=== PATIENT | female | born 1930 | race Hispanic/Latino ===

== ENCOUNTER 2017-07-22 12:23 | Emergency (ER) | payer MEDICARE ==
[~2017-07-22] VITALS: Ht 160 cm; Wt 55.8 kg
[~2017-07-22 12:23] MED LIST: ASPIRIN LOW-STR81 MG PO; ATENOLOL; ATENOLOL25 MG PO; LESCOL; LESCOL20 MG PO
[2017-07-22 13:26] LABS: LEUKOCYTE ESTERASE ,URINE 2+ (NEGATIVE)
[2017-07-22 13:28] LABS: BILIRUBIN,URINE NEGATIVE (NEGATIVE); CLARITY,URINE CLOUDY (CLEAR); COLOR,URINE YELLOW (YELLOW); KETONES,URINE NEGATIVE (NEGATIVE); NITRITE,URINE NEGATIVE (NEGATIVE); PROTEIN,URINE DIPSTICK NEGATIVE (NEGATIVE); URINE UROBILINOGEN 0.2 mg/dL (0.2 - 1)
[2017-07-22 13:39] LABS: BACTERIA,URINE MODERATE /HPF; EPITHELIAL CELLS,URINE MODERATE /LPF; RBC,URINE 0-5 /HPF (0-5); WBC,URINE (MAN) 21-50 /HPF (0-5)
--- NOTE | 2017-07-22 14:57 | Diagnostic Imaging Report ---
PROCEDURE:L-SPINE COMPLETE COMPARISON:None. INDICATIONS:RIGHT LOWER BACK PAIN FINDINGS: There are five lumbar-type vertebral bodies. Diffuse osseous demineralization. Convex curvature of the lumbar spine to the right. Cholecystectomy clips project over the right upper quadrant. Lumbar CT report from 02/06/2016 is available for compression, however no images are available to directly compare. Compression deformities of: * L1 with approximately 50% height loss (previously 30% reported on lumbar spine CT 02/06/2016) * L2 with approximately 40% height loss (previously 30% reported) * L3 compression deformity with approximately 30% height loss. No compression deformity was previously noted. * L4 compression deformity with approximately 50% height loss. No compression deformity was previously noted. The sacroiliac joints are unremarkable. CONCLUSION: Age-indeterminate worsening compression of L1 and L2. Age-indeterminate compression deformities of L3 and L4. Dictated by: Daryl Lopez M.D. on 07/22/2017 at 14:56 Electronically approved by: Daryl Lopez M.D. on 07/22/2017 at 14:56
--- NOTE | 2017-07-22 15:40 | Diagnostic Imaging Report ---
PROCEDURE:X-RAY ABDOMEN - KUB COMPARISON:None. INDICATIONS:BACK PAIN FOR A FEW DAYS FINDINGS: There is a non-obstructed bowel-gas pattern. Moderate amount of stool in the colon. A punctate calcification overlying the right renal silhouette is likely outside the kidney, possibly in the skin adjacent to the cassette given the relative lack of motion artifact. Otherwise, there are no calcifications projected over the renal shadows, expected course of the ureters or bladder. Cholecystectomy clips. Please refer to same day lumbar spine for lumbar spine findings including multiple compression deformities. Visualized lung bases are grossly clear. CONCLUSION: Non-obstructed bowel-gas pattern. Dictated by: Daryl Lopez M.D. on 07/22/2017 at 15:40 Electronically approved by: Daryl Lopez M.D. on 07/22/2017 at 15:40
== END 2017-07-22 16:20 | disposition home or self-care (01) ==
LOC: ER 12:23
DX: M54.5 Low back pain (principal); N30.90 Cystitis, unspecified without hematuria; E78.5 Hyperlipidemia, unspecified
CPT/HCPCS: 72110; 74018; 81001; 99284

== ENCOUNTER 2018-02-04 13:51 | Emergency (ER) | payer MEDICARE ==
[~2018-02-04] VITALS: Ht 160 cm; Wt 65.8 kg
[2018-02-04] MEDS ORDERED: TETANUS/DIPHTHERIA TOX ADULT 0.5 ML SYR IM ONE (14:00)
--- NOTE | 2018-02-04 15:01 | Diagnostic Imaging Report ---
FOOT LEFT COMPLETE - 3 views HISTORY: Foreign body. COMPARISON: None available. FINDINGS: Generalized demineralization and hammertoe deformities limits evaluation. No definite evidence of erosion, periosteal reaction, or abnormal soft tissue ossification. No acute displaced fracture or dislocation. Subluxation at the level of the second metatarsophalangeal joint. Small plantar calcaneal enthesophyte. IMPRESSION: No radiopaque foreign body visualized. Generalized demineralization. No definite evidence of acute displaced fracture. Subluxation at the level of the second metatarsophalangeal joint. Signed by: Dr. Delon Damon MD on 02/04/2018 2:58 PM
--- OUTSIDE RECORDS SUMMARY | 2018-02-07 13:42 | XMS REPORT ---
[facility] Address Unknown Phone Unavailable Care Team Providers Care Sales Professional Bilingual Name Role Phone Armaan ARCE Unavailable Unavailable KAILA WRIGHT Unavailable Unavailable Problems This patient has no known problems. Allergies, Adverse Reactions, Alerts This patient has no known allergies or adverse reactions. Medications This patient has no known medications. Results Test Description Test Time Test Comments Text Results Atomic Results Result Comments FOOT LEFT COMPLETE 2018-02-04 14:51:00 [facility] [address] [address] Patient Name: GHAZAL FIGUEROA MR #: [id number] : 1930 Age/Sex: 87/F Req #: [id number] Adm Physician: Ordered by: RADU LUNSFORD SORTER PACKER Report #: [id number] Location: ER Room/Bed: Procedure: [id number] DX/FOOT LEFT COMPLETE Exam Date: 02/04/18 Exam Time: 1440 REPORT STATUS: Signed FOOT LEFT COMPLETE - 3 views HISTORY: Foreign body. COMPARISON: None available. FINDINGS: Generalized demineralization and hammertoe deformities limits evaluation. No definite evidence of erosion, periosteal reaction, or abnormal soft tissue ossification. No acute displaced fracture or dislocation. Subluxation at the level of the second metatarsophalangeal joint. Small plantar calcaneal enthesophyte. IMPRESSION: No radiopaque foreign body visualized. Generalized demineralization. No definite evidence of acute displaced fracture. Subluxation at the level of the second metatarsophalangeal joint. Signed by: Dr. Delon Sanchez MD on 02/04/2018 2:58 PM Dictated By: DELON SANCHEZ MD 57 Transcribed By: ZARA on 02/04/181457 COPY TO: RADU LUNSFORD NP ABDOMEN-1VIEW (KUB) [address] [place] [address] Patient Name: GHAZAL FIGUEROA MR #: [id number] : 1930 Age/Sex: 86/F Req #: [id number] Adm Physician: Ordered by: KAILA WRIGHT MD Report #: [id number] Location: ER Room/Bed: Procedure: [id number] DX/ABDOMEN-1VIEW (KUB) Exam Date: 07/22/17 Exam Time: 1520 REPORT STATUS: Signed PROCEDURE: X-RAY ABDOMEN - KUB COMPARISON: None. INDICATIONS: BACK PAIN FOR A FEW DAYS FINDINGS: There is a non- obstructed bowel-gas pattern. Moderate amount of stool in the colon. A punctate calcification overlying the right renal silhouette is likely outside the kidney, possibly in the skin adjacent to the cassette given the relative lack of motion artifact. Otherwise, there are no calcifications projected over the renal shadows, expected course of the ureters or bladder. Cholecystectomy clips. Please refer to same day lumbar spine for lumbar spine findings including multiple compression deformities. Visualized lung bases are grossly clear. CONCLUSION: Non-obstructed bowel-gas pattern. Dictated by: Daryl Andres M.D. on 07/22/2017 at 15:40 Electronically approved by: Daryl Andres M.D. on 07/22/2017 at 15:40 Dictated By: DARYL ANDRES MD 39 Transcribed By: SANDER on 07/22/171539 COPY TO: KAILA WRIGHT MD SP LUMBAR, COMPLETE MIN 4VW [place] [address] Patient Name: GHAZAL FIGUEROA MR #: [id number] : 1930 Age/Sex: 86/F Req #: [id number] Adm Physician: Ordered by: KAILA WRIGHT MD Report #: [id number] Location: ER Room/Bed: Procedure: [id number] DX/SP LUMBAR, COMPLETE MIN 4VW Exam Date: 07/22/17 Exam Time: 1345 REPORT STATUS: Signed PROCEDURE: L-SPINE COMPLETE COMPARISON: None. INDICATIONS: RIGHT LOWER BACK PAIN FINDINGS: There are five lumbar- type vertebral bodies. Diffuse osseous demineralization. Convex curvature of the lumbar spine to the right. Cholecystectomy clips project over the right upper quadrant. Lumbar CT report from 02/06/2016 is available for compression, however no images are available to directly compare. Compression deformities of: * L1 with approximately 50% height loss (previously 30% reported on lumbar spine CT 02/06/2016) * L2 with approximately 40% height loss (previously 30% reported) * L3 compression deformity with approximately 30% height loss. No compression deformity was previously noted. * L4 compression deformity with approximately 50% height loss. No compression deformity was previously noted. The sacroiliac joints are unremarkable. CONCLUSION: Age-indeterminate worsening compression of L1 and L2. Age-indeterminate compression deformities of L3 and L4. Dictated by: Daryl Andres M.D. on 07/22/2017 at 14:56 Electronically approved by: Daryl Andres M.D. on 07/22/2017 at 14:56 Dictated By: DARYL ANDRES MD 1456 Transcribed By: SANDER on 07/22/17 1456 COPY TO: KAILA WRIGHT MD
== END 2018-02-04 15:35 | disposition home or self-care (01) ==
LOC: ER 13:51
DX: S90.822A Blister (nonthermal), left foot, initial encounter (principal); M79.672 Pain in left foot; R26.2 Difficulty in walking, not elsewhere classified
CPT/HCPCS: 90471; 90714; 99282